=== PATIENT | male | born 2005 | race Caucasian/White ===

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

== ENCOUNTER 2024-03-07 01:42 | Emergency (ER) | payer OTHER ==
[~2024-03-07] VITALS: Ht 175.3 cm; Wt 74.8 kg
[~2024-03-07 01:42] MED LIST changes: +METH-653 MT
[2024-03-07 01:49] VITALS: O2SAT 99
[2024-03-07 02:42] LABS: CLARITY URINE CLEAR (CLEAR); COLOR URINE YELLOW (YELLOW); GLUCOSE URINE NEGATIVE (NEGATIVE); KETONES URINE NEGATIVE (NEGATIVE); LEUKOCYTE ESTERASE URINE 1+ (NEGATIVE); NITRITE URINE NEGATIVE (NEGATIVE); OCCULT BLOOD URINE NEGATIVE (NEGATIVE); PH URINE 6.5 (4.5-8.0); PROTEIN URINE NEGATIVE (NEGATIVE); SPECIFIC GRAVITY URINE 1.009 (1.005-1.030); UROBILINOGEN URINE 0.2 E.U./dL (0.2-1.0)
[2024-03-07] MEDS ORDERED: CEFP100T8 MT (03:20)
[2024-03-07 03:55] VITALS: BP 124/69; PULSE 77; RESP 18; TEMP 37.11408; O2SAT 99
[2024-03-07] MEDS ORDERED: OFLO5DRO4 LEFT EAR (04:25)
[2024-03-07 07:28] LABS: RBC URINE 0-2 /hpf (0-2)
[2024-03-07 07:29] LABS: BACTERIA URINE NONE SEEN; SQUAMOUS EPITHELIAL CELL URINE NONE SEEN /lpf (RARE/1+)
== END 2024-03-07 04:00 | disposition home or self-care (01) ==
LOC: ER 01:42
DX: H60.92 Unspecified otitis externa, left ear (principal); N39.0 Urinary tract infection, site not specified; J45.909 Unspecified asthma, uncomplicated
CPT/HCPCS: 81003; 99283

== ENCOUNTER 2024-03-24 18:15 | Emergency (ER) | payer OTHER ==
[~2024-03-24] VITALS: Ht 172.7 cm; Wt 73.0 kg
[~2024-03-24 18:15] MED LIST changes: +CEFP100T8 MT; +OFLO5DRO4 LEFT EAR
[2024-03-24 18:17] VITALS: O2SAT 98
[2024-03-24] MEDS: HYDROCODONE/ACETAMINOPHEN 5/325MG TABLET PO ONE (18:57)
[2024-03-24 19:06] VITALS: TEMP 37.05852
[2024-03-24] MEDS: MORPHINE SULFATE 4 MG/ML INJ (FOR IV/IM USE) IM ONE (19:21)
[2024-03-24 20:35] VITALS: BP 154/83; PULSE 82; RESP 18; O2SAT 100
== END 2024-03-24 20:36 | disposition home or self-care (01) ==
LOC: ER 18:15
DX: S43.015A Anterior dislocation of left humerus, initial encounter (principal); J45.909 Unspecified asthma, uncomplicated; X58.XXXA Exposure to other specified factors, initial encounter; Y93.89 Activity, other specified; Y92.89 Other specified places as the place of occurrence of the external cause; Y99.8 Other external cause status
CPT/HCPCS: 73030; 23650; 99284; J2270; Z7610 ×5; A4606